=== PATIENT | female | born 1990 | race African-American/Black ===

== ENCOUNTER 2019-01-16 20:02 | Observation (INO) ==
[2019-01-16 20:50] LABS: Basophils % 0.8 % (0.0-0.8); Eosinophils # 0.2 10*3/uL (0.0-0.87); Eosinophils % 3.4 % (0.00-10.9); Hemoglobin 9.1 GM/DL (12.0-16.0); Immature Granulocytes % 0.2 %; Immature Granulocytes Absolute 0.01 #; Lymphocytes # 2.9 10*3/uL (1.4-4.0); Mean Corpuscular HGB Conc 30.3 GM/DL (32-36); Mean Corpuscular Volume 83.6 FL (87-102); Mean Platelet Volume 11.6 FL (9.6-12.0); Neutrophils % 31.6 % (38.7-73.9); Platelet Count 308 T/CUMM (130-400); Red Blood Count 3.59 MC/CUMM (3.8-5.5); Red Cell Distribution Width 15.9 % (9.3-17.3); White Blood Count 5.2 T/CUMM (4-12)
[2019-01-16] MEDS ORDERED: MORPHINE 4 MG/1 ML VIAL IV STA (21:00)
[2019-01-16] MEDS ORDERED: ASPIRIN 325 MG TABLET PO STA (21:00)
[2019-01-16] MEDS ORDERED: NITROGLYCERIN 2% OINT 1 INCH/GM PACK TOP STA (21:00)
[2019-01-16] MEDS ORDERED: ONDANSETRON 4 MG/2 ML VIAL IV STA (21:00)
[2019-01-16 21:10] LABS: Eosinophils 3 % (0-10); Lymphocytes 58 % (20-55); Segmented Neutrophils 31 % (50-85); Total Cells Counted 100
[2019-01-16 21:11] LABS: Alanine Aminotransferase 16 U/L (13-56); Albumin 2.6 G/DL (3.4-5.0); Alkaline Phosphatase 85 U/L (45-117); Anisocytosis Slight; Aspartate Amino Transferase 13 U/L (0-37); Bilirubin,Total < 0.39 MG/DL (0.2-1.0); Blood Urea Nitrogen 15 MG/DL (7-18); Calcium 8.8 MG/DL (8.5-10.1); Estimated Glom Filtration Rate 87 ML/MIN; Glucose 153 MG/DL (74-106); Microcytosis Slight; Osmolality,Calculated 282.4 MOS/KG (273-304); Platelet Estimate Normal; Polychromasia Slight; Total Protein 7.2 G/DL (6.4-8.3)
[2019-01-16 21:28] LABS: INR 1.1; PT Patient Result 11.4 SECS (9.6-12.2)
[2019-01-16 21:49] LABS: Apearance,Urine CLEAR (Clear); Bacteria,Urine Occasional /HPF (Few); Bilirubin,Urine Negative (Negative); Blood, Urine Large mg/dL (Negative); Glucose,Urine (UA) Negative (Negative); Hyaline Casts,Urine 4 /LPF (0-3); Ketones,Urine Negative (Negative); Mucus,Urine Occasional /LPF (Occasional); Nitrite,Urine Negative (Negative); Protein,Urine 100 MG/DL; RBC,Urine 11 /HPF (0-4); Squamous Epithelial Cell,Urine Occasional /HPF (0-10); Urine Color Amber (Yellow); Urine Specific Gravity 1.014 (1.001-1.035); Urine Urobilinogen < 2.0 EU/DL (0.2-1.0); WBC,Urine 1 /HPF (0-6)
[2019-01-16 21:51] LABS: Barbiturates Screen,Urine Negative (Negative); Benzodiazepines Screen,Urine Negative (Negative); Cannabinoid Screen,Urine Negative (Negative); Opiate Screen,Urine Negative (Negative); Phencyclidine Screen,Urine Negative (Negative)
[2019-01-16] MEDS ORDERED: MAGNESIUM SULF RIDER 2 GM in PREMIX 1 EACH IV STA (22:03)
[2019-01-16] MEDS ORDERED: ONDANSETRON 4 MG/2 ML VIAL IV PRN (23:47)
[2019-01-16] MEDS ORDERED: MORPHINE 4 MG/1 ML VIAL IV PRN (23:47)
[2019-01-16] MEDS ORDERED: ACETAMINOPHEN 325 MG TABLET PO PRN (23:47)
[2019-01-17 00:10] LABS: Risk Ratio 4.9; VLDL CHOLESTEROL 37.6 MG/DL
[2019-01-17] MEDS ORDERED: DEXTROSE 50% 25 GM/50 ML VIAL IV PRN (01:25)
[2019-01-17] MEDS ORDERED: GLUCAGON 1 MG VIAL IM PRN (01:25)
[2019-01-17] MEDS: NITROGLYCERIN 2% OINT 1 INCH/GM PACK TOP SCH ×3 (01:28→13:14)
[2019-01-17] MEDS: ENOXAPARIN 40 MG/0.4 ML SYRINGE SUBCUT SCH ×2 (01:28→08:43)
[2019-01-17] MEDS: INSULIN REGULAR 100 UNIT/ML SUBCUT SCH ×4 (01:30→16:47)
[2019-01-17] MEDS: carvediloL 6.25 MG TABLET PO SCH ×2 (08:41→16:47)
[2019-01-17] MEDS ORDERED: FUROSEMIDE 20 MG TABLET PO SCH (09:00)
[2019-01-17] MEDS ORDERED: SPIRONOLACTONE 25 MG TABLET PO SCH (09:00)
[2019-01-17] MEDS ORDERED: VALSARTAN 80 MG TABLET PO SCH (09:00)
[2019-01-17] MEDS ORDERED: MAGNESIUM SULF RIDER 2 GM in PREMIX 1 EACH IV PRN (09:11)
[2019-01-17] MEDS ORDERED: MAGNESIUM SULF RIDER 4 GM in PREMIX 1 EACH IV PRN (09:11)
[2019-01-17] MEDS ORDERED: ASPIRIN EC 81 MG TABLET PO SCH (09:30)
[2019-01-17 09:59] LABS: % Iron Saturation 9.5 % (18-50)
[2019-01-17 16:05] VITALS: BP 138/64
[2019-01-17] MEDS ORDERED: ATORVASTATIN 40 MG TABLET PO SCH (21:00)
== END 2019-01-17 18:30 | disposition home or self-care (01) ==
LOC: N.EDINP 20:02 → N.ED 20:02 → N.TELES 01-17 00:14
PROVIDERS: ADMIT Internal Medicine; ATTEND Internal Medicine